=== PATIENT | male | born 1950 | race Caucasian/White ===

== ENCOUNTER 2024-08-06 15:09 | Observation (INO) | payer MEDICARE, OTHER, SELFPAY ==
--- NOTE | ~2024-08-06 | CT_ITS ---
CT abdomen pelvis w con Ordering provider: Whitney Ortiz PA-C History: 74 years Male with . abd pain, vomiting . Comparison: None. Technique: CT abdomen and pelvis with IV and without oral contrast. Automated exposure control and it erative reconstruction technique were employed. The dose-length product was 661.82 mGy-cm. 100 mL Omn ipaque 350 was given IV. Findings: VISUALIZED LOWER CHEST: Dependent atelectatic changes. Trace of pericardial effusion. Small lymph nodes are seen around the lower thoracic aorta. UPPER ABDOMINAL ORGANS: Liver: Normal. Gallbladder: Distended gallbladder with cholelithiasis. Spleen: Normal. Stomach/duodenum: Small sliding hiatus hernia. Pancreas: Normal. Adrenals: Normal. Kidneys: Stone in the left kidney upper pole measuring 5 mm. Tiny cyst in the left kidney upper pole. Tiny cyst in the right kidney lower pole PELVIC ORGANS: The bladder is normal. BOWEL AND MESENTERY: Colon: Slight thickening of the proximal sigmoid colon which may indicate colitis versus diverticulit is with possible minimal fat stranding. Clinical correlation for tenderness in the area advised.. Nor mal appendix. Dense material is seen in the appendix. No thickening Small Bowel: Normal. No obstruction. Peritoneum/mesentery: No free air or free fluid. No mesenteric lymphadenopathy. Panniculitis seen in the mid abdomen. Enlarged lymph nodes with the largest measures 1.2 cm. RETROPERITONEUM: Normal aorta. No retroperitoneal lymphadenopathy. MUSCULOSKELETAL: Superficial soft tissues: Left fat-containing inguinal hernia. The superficial soft tissues are hermelindo l. Bones: Age appropriate degenerative changes of the spine. IMPRESSION: 1. Panniculitis of the mid abdomen mesentery with slightly enlarged lymph nodes. 2. Possible colitis and less likely diverticulitis in the proximal sigmoid colon with thickening of the wall follow-up advised. 3. Cholelithiasis with distended gallbladder. No evidence of cholecystitis seen. 4. Stone in the left kidney upper pole Reviewed, dictated and finalized at location A. IMPRESSION: 1. Panniculitis of the mid abdomen mesentery with slightly enlarged lymph node s. 2. Possible colitis and less likely diverticulitis in the proximal sigmoid col on with thickening of the wall follow-up advised. 3. Cholelithiasis with distended gallbladder. No evidence of cholecystitis see n. 4. Stone in the left kidney upper pole
[2024-08-06 15:12] VITALS: BP 153/76; PULSE 85; RESP 20; TEMP 36.3; O2SAT 99
[2024-08-06 15:52] VITALS: BP 146/83; PULSE 88; RESP 17; O2SAT 100
--- NOTE | 2024-08-06 18:22 | ED.ABDPAIN ---
HPI - Abdominal Pain General Chief Complaint: Abdominal Pain Stated Complaint: abd pain Time Seen by Provider: 08/06/24 17:12 Source: patient Mode of arrival: ambulatory Limitations: no limitations History of Present Illness HPI narrative: This is a 74-year-old male that presents to the emergency department for abdominal pain. Ongoing since this morning. Reports associated nausea vomiting. Also reports chills. Denies fevers, diarrhea, dysuria, hematuria. Related Data Home Medications Medication Instructions Recorded Confirmed amlodipine 10 mg tablet 10 mg PO DAILY 08/07/24 08/07/24 cholecalciferol (vitamin D3) 25 25 mcg PO DAILY 08/07/24 08/07/24 mcg (1,000 unit) capsule (Vitamin D3) mecobalamin (vitamin B12) 1,000 1,000 mcg PO DAILY 08/07/24 08/07/24 mcg chewable tablet omega-3 fatty acids 1 cap PO DAILY 08/07/24 08/07/24 sertraline 200 mg capsule 200 mg PO DAILY 08/07/24 08/07/24 Allergies Allergy/AdvReac Type Severity Reaction Status Date / Time No Known Allergies Allergy Verified 08/06/24 21:44 Review of Systems Review of Systems: CONSTITUTIONAL: Reports chills. Denies fever GASTROINTESTINAL: Reports abdominal pain, nausea, vomiting. Denies diarrhea. GENITOURINARY: Denies dysuria or hematuria. All systems reviewed & are unremarkable except as noted in HPI and below PMFSH Past Medical History Medical History (Updated 08/07/24 @ 02:26 by Whitney Ortiz PA-C) History of depression Family History Family History (Updated 08/07/24 @ 02:05 by Florence Toussaint RN) Sibling Colon cancer Social History Social History (Updated 08/06/24 @ 18:25 by Whitney Ortiz PA-C) Smoking status: Former smoker Do You Feel Safe in your Home?: Yes Lack of Transportation: No Lack of Food: Never True Current Housing: I Have Housing Concerned About Future Housing: No Difficulty Paying Gas/Electric Bills: YES Difficulty Paying for Meds: No Currently Unemployed: No Education: High School Diploma/GED Difficulty w/ Childcare or Family Care: No Spiritual care concerns: No Exam Narrative: GENERAL: Well-appearing, well-nourished, and in no acute distress. HEAD: Normocephalic, atraumatic. EYES: EOMI. ENT: Nares clear, no rhinorrhea or epistaxis. Mucous membranes moist. CHEST: Clear to auscultation. No respiratory distress. No wheezes rales or rhonchi HEART: Regular rate and rhythm. No murmur heard. Normal peripheral pulses. ABDOMEN: Soft, nondistended, normal active bowel sounds. Tender to palpation throughout the abdomen, without guarding EXTREMITIES: Normal range of motion. No edema. SKIN: Warm, dry, no rash. NEURO: No focal deficits. Alert and oriented x3. PSYCH: Normal mood and affect Course Course Emergency Course: Patient updated on his workup and recommendation for admission Consultations Consultation #1: The MD does not have any beds at this time Date: 08/07/24 Consultation #2: Spoke with hospitalist about patient and workup who accepts admission Date: 08/07/24 Vital Signs Vital signs: Vital Signs Temperature 97.4 F L 08/06/24 15:12 Pulse Rate 85 08/06/24 15:12 Respiratory Rate 20 08/06/24 15:12 Blood Pressure 153/76 H 08/06/24 15:12 Pulse Oximetry 99 08/06/24 15:12 Oxygen Delivery Room Air 08/06/24 15:12 Temperature 98.8 F 08/06/24 21:20 Pulse Rate 74 08/07/24 01:18 Respiratory Rate 18 08/07/24 01:18 Blood Pressure 137/75 08/07/24 01:18 Pulse Oximetry 95 08/07/24 01:18 Oxygen Delivery Room Air 08/06/24 15:12 MDM - Abdominal Pain MDM Narrative Medical decision making narrative: Patient presents to the emergency department for abdominal pain, nausea vomiting. He is afebrile and nontoxic appearing. His vitals are stable. CBC with leukocytosis to 18.4. Metabolic panel with some evidence of dehydration. Patient hydrated with IV fluids in the ED. urine without evidence of infection. CT abdomen pelvis shows likely diverticulitis. Cholelithiasis with distended gallbladder. No evidence of cholecystitis. Patient was updated on his workup and recommendation for admission. Spoke with hospitalist about patient and workup who accepts admission. Patient started on IV antibiotics. Blood cultures drawn Differential Diagnosis Differential diagnosis: Likely diverticulitis, gastroenteritis and other (Cholecystitis) Lab Data Attestation: I reviewed the patient's lab results. 10/28/24 19:09 08/06/24 19:09 Labs: Lab Results 08/06/24 08/06/24 Range/Units 18:54 19:09 WBC 18.4 H (4.5-10.0) K/mm3 RBC 5.72 (4.6-6.20) M/mm3 Hgb 15.9 (14.0-18.0) g/dL Hct 47.3 (42.0-52.0) % MCV 82.7 (80-100) fl MCH 27.8 (26-34) pg MCHC 33.6 (32-36) g/dl RDW 14.6 H (11.5-14.5) % Plt Count 289 (150-375) k/mm3 MPV 8.9 (7.4-10.4) fl Immature Gran % (Auto) 0.4 (0-0.5) % Neut % (Auto) 84.8 H (45.5-73.1) % Lymph % (Auto) 10.0 L (18.3-44.2) % Brewster % (Auto) 4.4 (2.6-8.5) % Eos % (Auto) 0.0 (0-4.4) % Baso % (Auto) 0.4 (0.2-1.2) % Lymph # (Auto) 1.84 (0.9-3.2) K/mm3 Brewster # (Auto) 0.8 H (0.1-0.6) K/mm3 Eos # (Auto) 0.0 (0-0.3) K/mm3 Baso # (Auto) 0.1 (0.0-0.1) K/mm3 Abs Immat Gran (auto) 0.07 H (0.00-0.031) K/mm3 Absolute Neuts (auto) 15.6 H (1.3-6.7) K/mm3 Absolute Nucleated RBC 0.000 (0.0-0.012) K/mm3 Nucleated RBC % 0.0 (0.0-0.2) % Sodium 141 (137-145) mmol/L Potassium 3.6 (3.4-5.0) mmol/L Chloride 105 (98-107) mmol/L Carbon Dioxide 19 L (22-30) mmol/L Anion Gap 17 H (4-12) mmol/L BUN 17 (9-20) mg/dL Creatinine 1.10 (0.7-1.3) mg/dL Estim Creat Clear Calc 50 ml/min Estimated GFR > 60 (59 - ) Glucose 165 H (65-110) mg/dL Calcium 10.2 (8.4-10.2) mg/dL Total Bilirubin 1.0 (0.2-1.3) mg/dL AST 36 (17-59) U/L ALT 37 (6-50) U/L Alkaline Phosphatase 118 (38-126) U/L Total Protein 9.0 H (6.3-8.2) g/dL Albumin 4.9 (3.5-5.1) g/dL Lipase 85 (23-300) U/L Urine Color Yellow (Yellow) Urine Appearance Cloudy H (Clear) Urine pH 8.5 (5.0-9.0) Ur Specific [place] 1.017 (1.001-1.035) Urine Protein Trace (Negative) mg/dL Urine Glucose (UA) Negative (Negative) mg/dL Urine Ketones 1+ H (Negative) mg/dL Ur Blood (Man) Negative (Negative) Urine Nitrate Negative (Negative) Urine Bilirubin Negative (Negative) Urine Urobilinogen 0.2 (<2.0) mg/dL Leukocyte Esterase Rfl Negative (Negative) NIKKI/UL Urine RBC 0-2 (0-2) /hpf Urine WBC 0-5 (0-3) /hpf Ur Squamous Epith Cells None seen (Few) /hpf Urine Bacteria None seen /hpf Urine Casts 0-2 Imaging Data Radiologist's impression: ITS Impressions Abdomen/Pelvis CT 08/06/24 23:25 IMPRESSION: 1. Panniculitis of the mid abdomen mesentery with slightly enlarged lymph nodes. 2. Possible colitis and less likely diverticulitis in the proximal sigmoid colon with thickening of the wall follow-up advised. 3. Cholelithiasis with distended gallbladder. No evidence of cholecystitis seen. 4. Stone in the left kidney upper pole Critical Care Time Critical Care Time Critical Care Time: No Discharge Plan Discharge Clinical Impression: Diverticulitis, Dehydration Patient Disposition: Still a Patient Condition: Stable
[2024-08-06 18:50] VITALS: BP 144/82; PULSE 89; RESP 20; TEMP 36.8; O2SAT 97
[2024-08-06 19:06] LABS: Add Urine Microscopic? YES; Appearance Urine Cloudy (Clear); Bacteria Urine None Seen /hpf; Bilirubin Urine Negative (Negative); Blood Urine Negative (Negative); Color Urine Yellow (Yellow); Glucose Urine UA Negative (Negative); Ketones Urine 1+ mg/dL (Negative); Leukocyte Esterase Ur Negative LEU/UL (Negative); Nitrate Urine Negative (Negative); Non Pathogenic Casts 0-2; Protein Urine Trace mg/dL (Negative); RBC Urine 0-2 /hpf (0-2); Specific Grav Ur 1.017 (1.001-1.035); Squamous Epithelial Cell Urine None Seen /hpf (Few); Urobilinogen Urine 0.2 mg/dL (<2.0); WBC Urine 0-5 /hpf (0-3); pH Urine 8.5 (5.0-9.0)
[2024-08-06 19:13] VITALS: BP 155/87; PULSE 78; RESP 20; TEMP 36.8; O2SAT 97
[2024-08-06 19:21] LABS: Basophils Absolute Auto 0.1 K/mm3 (0.0-0.1); Basophils Percent Auto 0.4 % (0.2-1.2); Hematocrit 47.3 % (42.0-52.0); Hemoglobin 15.9 g/dL (14.0-18.0); Immature Granulocyte Absolute 0.07 K/mm3 (0.00-0.031); Immature Granulocyte Percent A 0.4 % (0-0.5); Lymphocytes Absolute Auto 1.84 K/mm3 (0.9-3.2); Mean Corpuscular HGB Conc 33.6 g/dl (32-36); Mean Corpuscular Hemoglobin 27.8 pg (26-34); Mean Corpuscular Volume 82.7 fl (80-100); Mean Platelet Volume 8.9 fl (7.4-10.4); Monocytes Absolute Auto 0.8 K/mm3 (0.1-0.6); Monocytes Percent Auto 4.4 % (2.6-8.5); Neutrophils Absolute Auto 15.6 K/mm3 (1.3-6.7); Neutrophils Percent Auto 84.8 % (45.5-73.1); Platelet Count Result 289 k/mm3 (150-375); Red Blood Count 5.72 M/mm3 (4.6-6.20); Red Cell Distribution Width 14.6 % (11.5-14.5); White Blood Count 18.4 K/mm3 (4.5-10.0)
[2024-08-06] MEDS: SODIUM CHLORIDE 0.9% IV 1,000 ML 999 ML IV CONT ×2 (19:34→23:52)
[2024-08-06] MEDS: PANTOPRAZOLE SODIUM IV 40 MG VIAL IV PUSH (19:38)
[2024-08-06] MEDS: diphenhydrAMINE HCl INJ 50 MG/ML VIAL 25 MG IV PUSH (19:39)
[2024-08-06] MEDS: METOCLOPRAMIDE HCL INJ 10 MG/2 ML VIAL IV PUSH (19:40)
[2024-08-06] MEDS: MORPHINE SULFATE (*CRX) 4 MG/ML INJ IV PUSH (19:42)
[2024-08-06 19:58] LABS: Alanine Aminotransferase 37 U/L (6-50); Albumin Level 4.9 g/dL (3.5-5.1); Alkaline Phosphatase 118 U/L (38-126); Anion Gap 17 mmol/L (4-12); Aspartate Amino Transferase 36 U/L (17-59); Blood Urea Nitrogen 17 mg/dL (9-20); Calcium 10.2 mg/dL (8.4-10.2); Carbon Dioxide 19 mmol/L (22-30); Chloride 105 mmol/L (98-107); Estimated CRCL calculation 50 ml/min; Estimated Glomerular Filt Rate > 60; Glucose 165 mg/dL (65-110); Lipase 85 U/L (23-300); Potassium 3.6 mmol/L (3.4-5.0); Sodium 141 mmol/L (137-145)
[2024-08-06 21:20] VITALS: BP 139/74; PULSE 87; RESP 16; TEMP 37.1; O2SAT 97
[2024-08-06 23:27] VITALS: BP 135/77; PULSE 86; RESP 18; O2SAT 93
[2024-08-07] VITALS (8 sets, daily range): BP systolic 107–137; BP diastolic 58–75; PULSE 73–87; RESP 12–20; TEMP 36.6–37; O2SAT 93–96; BMI 27.6
[2024-08-07] MEDS: metroNIDAZOLE 500 MG/ISO 100ML 500 MG/100 ML BAG 100 MG IVPB ×3 (00:44→15:30)
--- NOTE | 2024-08-07 03:11 | ADMGEN ---
This patient, Onel Christianson, was admitted to [facility] Surg Room 306-01. Patient/family oriented to hospital policies and general routines including ID bracelet, bed and alarms, visiting hours, pain management, procedures, bathroom and other care routines, personal items, smoking policy, room service/diet, and visiting hours. Information on how to activate the Rapid Response Team has been discussed. Patient/Family are encouraged to report perceived risks to care and to ask questions if they do not understand what they are told or what they should do.
[2024-08-07] MEDS: SODIUM CHLORIDE 0.9% IV 1,000 ML 125 ML IV CONT ×3 (03:27→19:29)
[2024-08-07] MEDS: SERTRALINE HCL 50 MG TABLET 200 MG PO (09:25)
[2024-08-07] MEDS: CYANOCOBALAMIN 1,000 MCG TABLET 1000 MCG PO (09:25)
[2024-08-07] MEDS: CHOLECALCIFEROL 1,000 UNITS TABLET 1000 UNITS PO (09:25)
[2024-08-07] MEDS: OMEGA 3 POLYUNSAT FATTY ACIDS 1 GM CAP PO (09:25)
--- NOTE | 2024-08-07 09:31 | P.HP_ITS ---
H&P: HPI History of Present Illness Date/Time: 08/07/24 09:31 Chief Complaint: Patient is a 74 year old male that presented to the ER department with abdominal pain that started yesterday morning. Patient reports nausea and vomiting 8 times. Denies nausea at present, fevers, diarrhea, dysuria, or hematuria. [facility] Patient started on IV Ceftriaxone and Vancomycin in the ER with WBC improving from 18.4>16.0. Normal LFTs, normal BMP, normal lipase. Blood cultures pending. GI consulted. Abdominal pelvis CT showed: IMPRESSION: 1. Panniculitis of the mid abdomen mesentery with slightly enlarged lymph nodes. 2. Possible colitis and less likely diverticulitis in the proximal sigmoid colon with thickening of the wall follow-up advised. 3. Cholelithiasis with distended gallbladder. No evidence of cholecystitis seen. 4. Stone in the left kidney upper pole. Review of Systems Review of Systems: All systems reviewed & are unremarkable except as noted in HPI and below PMFSH Past Medical History Medical History (Updated 08/07/24 @ 10:37 by Sherrie Johnson APRN) History of depression Family History Family History (Updated 08/07/24 @ 02:05 by Florence Toussaint RN) Sibling Colon cancer Social History Social History (Updated 08/06/24 @ 18:25 by Whitney Ortiz PA-C) Smoking status: Former smoker Do You Feel Safe in your Home?: Yes Lack of Transportation: No Lack of Food: Never True Current Housing: I Have Housing Concerned About Future Housing: No Difficulty Paying Gas/Electric Bills: YES Difficulty Paying for Meds: No Currently Unemployed: No Education: High School Diploma/GED Difficulty w/ Childcare or Family Care: No Spiritual care concerns: No Meds Home Medications and Allergies Home Medications Medication Instructions Recorded Confirmed Type amlodipine 10 mg tablet 10 mg PO DAILY 08/07/24 08/07/24 History cholecalciferol (vitamin D3) 25 25 mcg PO DAILY 08/07/24 08/07/24 History mcg (1,000 unit) capsule (Vitamin D3) mecobalamin (vitamin B12) 1,000 1,000 mcg PO DAILY 08/07/24 08/07/24 History mcg chewable tablet omega-3 fatty acids 1 cap PO DAILY 08/07/24 08/07/24 History sertraline 200 mg capsule 200 mg PO DAILY 08/07/24 08/07/24 History Allergies Allergy/AdvReac Type Severity Reaction Status Date / Time No Known Allergies Allergy Verified 08/06/24 21:44 Vital Signs Vital Signs - 24 hr 08/06/24 15:12 08/06/24 15:52 08/06/24 18:50 Temperature 97.4 F L 98.2 F Pulse Rate 85 88 89 Respiratory Rate 20 17 20 Blood Pressure 153/76 H 146/83 H 144/82 H Pulse Oximetry 99 100 97 Oxygen Delivery Room Air 08/06/24 19:13 08/06/24 21:20 08/06/24 23:27 Temperature 98.2 F 98.8 F Pulse Rate 78 87 86 Respiratory Rate 20 16 18 Blood Pressure 155/87 H 139/74 135/77 Pulse Oximetry 97 97 93 Oxygen Delivery 08/07/24 00:44 08/07/24 01:18 08/07/24 02:37 Temperature 98.6 F Pulse Rate 78 74 75 Respiratory Rate 18 18 12 Blood Pressure 130/69 137/75 117/66 Pulse Oximetry 94 95 96 Oxygen Delivery 08/07/24 02:30 08/07/24 05:32 08/07/24 08:00 Temperature 98.0 F Pulse Rate 73 Respiratory Rate 12 Blood Pressure 122/58 L Pulse Oximetry 93 93 Oxygen Delivery Room Air Room Air 08/07/24 09:28 Temperature Pulse Rate Respiratory Rate Blood Pressure 113/64 Pulse Oximetry Oxygen Delivery Exam Const: General: no acute distress Eyes: Sclera: sclerae normal Resp: Effort & Inspection: normal respiratory effort Auscultation: clear to auscultation bilaterally Cardio: Rate: regular rate Rhythm: regular rhythm GI: GI Palp: Yes Soft to palpation and Yes Tenderness to palpation present (G I) (mid upper abdomen) Auscultation: normal bowel sounds Skin: General skin exam: no rashes or lesions noted Neuro: Speech: normal speech Extrem: General: normal to inspection and no pedal edema Psych: Mental Status: mental status grossly normal Affect: normal affect H&P: Results Labs Labs: Short CBC 08/06/24 Range/Units 19:09 WBC 18.4 H (4.5-10.0) K/mm3 Hgb 15.9 (14.0-18.0) g/dL Hct 47.3 (42.0-52.0) % Plt Count 289 (150-375) k/mm3 BMP 08/06/24 19:09 Sodium 141 Potassium 3.6 Chloride 105 Carbon Dioxide 19 L BUN 17 Creatinine 1.10 Glucose 165 H Calcium 10.2 Liver Function 08/06/24 Range/Units 19:09 Total Bilirubin 1.0 (0.2-1.3) mg/dL AST 36 (17-59) U/L ALT 37 (6-50) U/L Alkaline Phosphatase 118 (38-126) U/L Albumin 4.9 (3.5-5.1) g/dL Urine 08/06/24 Range/Units 18:54 Urine Color Yellow (Yellow) Urine Appearance Cloudy H (Clear) Urine pH 8.5 (5.0-9.0) Ur Specific [place] 1.017 (1.001-1.035) Urine Protein Trace (Negative) mg/dL Urine Glucose (UA) Negative (Negative) mg/dL Assessment and Plan Assessment and plan (1) Abnormal digestive system diagnostic imaging: Code(s): R93.3 - Abnormal findings on diagnostic imaging of other parts of digestive tract Status: Acute Assessment and Plan: * Abdominal pelvis CT showed: IMPRESSION: 1. Panniculitis of the mid abdomen mesentery with slightly enlarged lymph nodes. 2. Possible colitis and less likely diverticulitis in the proximal sigmoid colon with thickening of the wall follow-up advised. 3. Cholelithiasis with distended gallbladder. No evidence of cholecystitis seen. 4. Stone in the left kidney upper pole. * Monitor symptoms. GI consulted. (2) Panniculitis: Code(s): M79.3 - Panniculitis, unspecified Status: Acute Assessment and Plan: Abdominal pelvis CT showed: IMPRESSION: 1. Panniculitis of the mid abdomen mesentery with slightly enlarged lymph no desiree. 2. Possible colitis and less likely diverticulitis in the proximal sigmoid colon with thickening of the wall follow-up advised. 3. Cholelithiasis with distended gallbladder. No evidence of cholecystitis seen. 4. Stone in the left kidney upper pole. * Monitor symptoms. GI consulted. (3) Diverticulitis: Code(s): K57.92 - Diverticulitis of intestine, part unspecified, without perforation or abscess without bleeding Status: Acute Assessment and Plan: Abdominal pelvis CT showed: IMPRESSION: 1. Panniculitis of the mid abdomen mesentery with slightly enlarged lymph nodes. 2. Possible colitis and less likely diverticulitis in the proximal sigmoid colon with thickening of the wall follow-up advised. 3. Cholelithiasis with distended gallbladder. No evidence of cholecystitis seen. 4. Stone in the left kidney upper pole. * Monitor symptoms. GI consulted. * Continue Ceftriaxone 1 gm daily and Metronidazole 500 mg IVPB q8 (4) Abdominal pain: Qualifiers: Abdominal location: periumbilical Qualified Code(s): R10.33 - Periumbilical pain Code(s): R10.9 - Unspecified abdominal pain Status: Acute Assessment and Plan: * improving. No nausea or vomiting today. * Continue Ceftriaxone 1 gm daily and Metronidazole 500 mg IVPB q8. * Acetaminophen 650 mg PO q 6 PRN. (5) Nausea and vomiting: Qualifiers: Vomiting type: bilious vomiting Qualified Code(s): R11.14 - Bilious vomiting Code(s): R11.2 - Nausea with vomiting, unspecified Status: Acute Assessment and Plan: * Improved. No nausea or vomiting since arrived on floor today. * Continue Ondansetron 4 mg ivp q 4 PRN. * Continue Clear liquids, patient is tolerating. (6) Cholelithiasis: Qualifiers: Biliary obstruction: without biliary obstruction Cholecystitis presence: without cholecystitis Cholelithiasis location: gallbladder Qualified Code(s): K80.20 - Calculus of gallbladder without cholecystitis without obstruction Code(s): K80.20 - Calculus of gallbladder without cholecystitis without obstruction Status: Acute Assessment and Plan: * Monitor symptoms * GI following. (7) Family history of colon cancer: Code(s): Z80.0 - Family history of malignant neoplasm of digestive organs Status: Acute (8) Personal history of colon polyps, unspecified: Code(s): Z86.0100 - Personal history of colon polyps, unspecified Status: Acute Quality VTE Prophylaxis VTE prophylaxis: mechanical ordered Hospitalist MIPS Advance Care Plan I have confirmed that the patient's Advanced Care Plan is present, code status is documented, or surrogate decision maker is listed in patient medical record.: Yes Medication Reconciliation I have utilized all available resources to obtain, update and review the patients current medications (includes all prescriptions, OTC, herbals, cannabis, and nutritional supplements).: Yes
[2024-08-07 09:50] LABS: Basophils Percent Auto 0.2 % (0.2-1.2); Eosinophils Percent Auto 0.3 % (0-4.4); Hematocrit 40.8 % (42.0-52.0); Immature Granulocyte Absolute 0.05 K/mm3 (0.00-0.031); Immature Granulocyte Percent A 0.3 % (0-0.5); Lymphocytes Absolute Auto 2.48 K/mm3 (0.9-3.2); Lymphocytes Percent Auto 15.5 % (18.3-44.2); Mean Corpuscular HGB Conc 31.9 g/dl (32-36); Mean Corpuscular Hemoglobin 27.5 pg (26-34); Mean Corpuscular Volume 86.3 fl (80-100); Monocytes Absolute Auto 1.2 K/mm3 (0.1-0.6); Monocytes Percent Auto 7.7 % (2.6-8.5); Neutrophils Absolute Auto 12.1 K/mm3 (1.3-6.7); Platelet Count Result 216 k/mm3 (150-375); Red Blood Count 4.73 M/mm3 (4.6-6.20); Red Cell Distribution Width 15.3 % (11.5-14.5)
--- NOTE | 2024-08-07 10:23 | WPDGICN ---
Assessment and Plan Assessment and plan (1) Abnormal digestive system diagnostic imaging: Code(s): R93.3 - Abnormal findings on diagnostic imaging of other parts of digestive tract <Sherrie Johnson DATASTAGE DEVELOPER - Last Filed: 08/07/24 10:42> Status: Acute <Sherrie Johnson APRN - Last Filed: 08/07/24 10:42> (2) Panniculitis: Code(s): M79.3 - Panniculitis, unspecified <Sherrie Johnson DATASTAGE DEVELOPER - Last Filed: 08/07/24 10:42> Status: Acute <Sherrie Johnson DATASTAGE DEVELOPER - Last Filed: 08/07/24 10:42> (3) Diverticulitis: Code(s): K57.92 - Diverticulitis of intestine, part unspecified, without perforation or abscess without bleeding <Sherrie Johnson DATASTAGE DEVELOPER - Last Filed: 08/07/24 10:42> Status: Acute <Sherrie Johnson DATASTAGE DEVELOPER - Last Filed: 08/07/24 10:42> (4) Nausea and vomiting: Qualifiers: Vomiting type: bilious vomiting Qualified Code(s): R11.14 - Bilious vomiting <Sherrie Johnson DATASTAGE DEVELOPER - Last Filed: 08/07/24 10:42> Code(s): R11.2 - Nausea with vomiting, unspecified <Sherrie Johnson DATASTAGE DEVELOPER - Last Filed: 08/07/24 10:42> Status: Acute <Shrerie Johnson DATASTAGE DEVELOPER - Last Filed: 08/07/24 10:42> (5) Abdominal pain: Qualifiers: Abdominal location: periumbilical Qualified Code(s): R10.33 - Periumbilical pain <Sherrie Khanchasidy DATASTAGE DEVELOPER - Last Filed: 08/07/24 10:42> Code(s): R10.9 - Unspecified abdominal pain <Sherrie KhanLILI umañaN - Last Filed: 08/07/24 10:42> Status: Acute <Sherrie Khanchasidy DATASTAGE DEVELOPER - Last Filed: 08/07/24 10:42> (6) Cholelithiasis: Qualifiers: Biliary obstruction: without biliary obstruction Cholecystitis presence: without cholecystitis Cholelithiasis location: gallbladder Qualified Code(s): K80.20 - Calculus of gallbladder without cholecystitis without obstruction <Sherrie Johnson APRN - Last Filed: 08/07/24 10:42> Code(s): K80.20 - Calculus of gallbladder without cholecystitis without obstruction <Sherrie Johnson APRN - Last Filed: 08/07/24 10:42> Status: Acute <Sherrie Johnson APRN - Last Filed: 08/07/24 10:42> (7) Family history of colon cancer: Code(s): Z80.0 - Family history of malignant neoplasm of digestive organs <Sherrie Johnson, DATASTAGE DEVELOPER - Last Filed: 08/07/24 10:42> Status: Acute <Sherrie Johnson APRN - Last Filed: 08/07/24 10:42> (8) Personal history of colon polyps, unspecified: Code(s): Z86.0100 - Personal history of colon polyps, unspecified <Sherrie Johnson APRN - Last Filed: 08/07/24 10:42> Status: Acute <Sherrie Johnson APRN - Last Filed: 08/07/24 10:42> Assessment and Plan: 1. Umbilical abdominal pain/ nausea/vomiting/ abnormal imaging digestive-colitis and panniculitis/ leukocytosis/ personal history of colon polyps/family history of colon cancer: Last colonoscopy per patient was performed at the [place] 1 year ago which time he had a polyp removed and was noted to have diverticulosis, reports not available during today's visit. Patient's sister diagnosed with colon cancer with liver Mets at age 41. Prior to admission the patient started having an acute onset of umbilical abdominal pain around 9:00 a.m. yesterday that started as a dull pain and became very severe prompting his trip to the emergency room. This pain has all but resolved except for very mild discomfort with palpation in his upper abdomen. He had nausea and vomiting while in the emergency room but denies any episodes since. Admits to reflux that had been occurring a few days prior to admission that resolved with Tums, denies any reflux at this time. CT findings most consistent with possible colitis, less likely diverticulitis in proximal sigmoid colon. labs yesterday showed WBCs 18, HGB 16, normal LFTs, normal BMP, normal lipase. CT findings likely secondary to acute infectious / inflammatory process patient on ceftriaxone and Flagyl, continue for 48 hours and then discharge on PO antibiotics Blood cultures pending Continue supportive care with pain management and antiemetics 2. Cholelithiasis: Incidental finding on CT, gallbladder distended but no evidence of cholecystitis. No signs of biliary obstruction or dilation. LFTs and lipase normal. Monitor for signs/symptoms of biliary colic or cholecystitis Consider surgical evaluation for cholecystectomy as outpatient if recurrent symptoms Thank you very much for allowing me to share in the care of this very nice patient. This report may have been done utilizing a voice recognition system. Attempts have been made to correct errors. However, there may be uncorrected grammatical, spelling, and recognition errors present. <Sherrie Johnson APRN - Last Filed: 08/07/24 10:42> GI Consult Note Consult date/time: 08/07/24 10:23 <Sherrie Johnson APRN - Last Filed: 08/07/24 10:42> 08/07/24 10:23 I have reviewed our nurse practitioner's note, examined the patient and pertinent laboratory data. We have discussed the plan extensively and agreed with was stated in the note. The patient still has mild tenderness in the left lower quadrant, and the CT scan shows changes compatible with acute diverticulitis. He does have diverticula on previous colonoscopies, done for his significant family history of colorectal cancer. He is currently receiving intravenous antibiotics which have improved his pain and discomfort significantly. He has received at least 48 hours of these antibiotics, and if his white count improves to normal, he can be discharged with 12 more days of oral antibiotics, which can be amoxicillin/clavulanic acid 1 g b.i.d. there is no need to perform a follow-up colonoscopy since he has a recent one. Will order CBC for tomorrow. <Terrence Arguello MD - Last Filed: 08/07/24 15:52> Reason for consult: Diverticulitis and abdominal pain <Sherrie Johnson APRN - Last Filed: 08/07/24 10:42> HPI: This is a pleasant male with a past medical surgical history of right inguinal hernia repair 30 years ago. He presented to the ER room 08/06/2024 with complaints of abdominal pain, nausea and vomiting. GI consulted for diverticulitis and abdominal pain. The patient reports that his abdominal pain started on 08/05/2024 around 9:00 AM. He describes it as a dull pain at first but then became pretty painful , located in the middle of his abdomen around his belly button. He started having nausea and vomiting a few hours later while in the ER but denies any further nausea or vomiting. He thought it may have been something he ate the night before or possibly the flu. He denies any current abdominal pain, just some discomfort. He denies any bloating or abdominal distension. He denies any dysphagia or odynophagia. He reports having some heartburn a couple days prior to this episode that occurred during the day and night. He took Tums which helped somewhat. His appetite has been okay. He reports losing about 10 pounds as 3-4 weeks ago when he thought he may have had COVID, but his weight has been stable since then. He has daily bowel movements, with occasional bouts of diarrhea a few times per week which typically resolves after 3-4 bowel movements. No constipation. He denies any hematochezia or melena. He takes ibuprofen and Tylenol a few times per month. Gallbladder in situ. He had a right inguinal hernia repair about 30 years ago. His last colonoscopy was about a year ago at the [place] with polyp and diverticulosis and advised to repeat in 5 years. His sister was diagnosed with colon cancer at age 41 and from liver metastases. Another sister has some type of colitis, possibly ulcerative colitis. He denies any other family history of GI cancers. He rarely drinks alcohol socially and denies any smoking or marijuana use. ENDOSCOPY HISTORY: EGD: Patient has never had an EGD COLONOSCOPY: Last colonoscopy about a year ago at [place] (patient reports polyp removed and diverticlosis noted) Repeat recommended in 5 years LABS AND STOOL STUDIES: Labs 08/06/2024: Sodium 141, Potassium 3.6, BUN 17, Creatinine 1.10, GFR > 60 WBC 18, Hgb 16, Hct 47, MCV 83, Platelets 289 Total Bilirubin 1.0, AST 36, ALT 37, Alkaline Phosphatase 118, Albumin 4.9 Lipase 85, Calcium 2.0 IMAGING: CT abd/pelvis w/contrast 08/06/2024 IMPRESSION ? Panniculitis of the mid abdomen mesentery with slightly enlarged lymph nodes. ? Possible colitis and less likely diverticulitis in the proximal sigmoid colon with thickening of the wall follow-up advised. ? Cholelithiasis with distended gallbladder. No evidence of cholecystitis seen. ? Stone in the left kidney upper pole <Sherrie Johnson APRN - Last Filed: 08/07/24 10:42> Review of Systems Constitutional: Constitutional: Reports as per HPI <Sherrie Johnson APRN - Last Filed: 08/07/24 10:42> ENT: Reports as per HPI <Sherrie Johnson APRN - Last Filed: 08/07/24 10:42> Cardiovascular: Cardiovascular: Reports as per HPI, Denies chest pain, Denies leg edema, Denies lightheadedness and Denies dyspnea <Sherrie Johsnon APRN - Last Filed: 08/07/24 10:42> Respiratory: Respiratory: Denies cough and Denies dyspnea <Sherrie Johnson APRN - Last Filed: 08/07/24 10:42> Gastrointestinal: Gastrointestinal: Reports as per HPI and Reports abdominal pain (mild dull umbilical pain, was severe prior to admission) <Sherrie Johnson APRN - Last Filed: 08/07/24 10:42> Musculoskeletal: Musculoskeletal: Reports as per HPI <Sherrie Johnson APRN - Last Filed: 08/07/24 10:42> Integumentary/Breasts: Skin/Breast: Reports as per HPI <Sherrie Johnson APRN - Last Filed: 08/07/24 10:42> Psychiatric: Psychiatric: Reports as per HPI <Sherrie Johnson APRN - Last Filed: 08/07/24 10:42> Endocrine: Endocrine: Reports no additional endocrine complaints <Sherrie Johnson APRN - Last Filed: 08/07/24 10:42> Hematologic/Lymphatic: Hematologic/Lymphatic: Reports no additional hematologic/lymphatic complaints <Sherrie Johnson APRN - Last Filed: 08/07/24 10:42> [facility] Past Medical History Medical History: Medical History (Updated 08/07/24 @ 10:37 by Sherrie Johnson APRN) History of depression <Sherrie Johnson APRN - Last Filed: 08/07/24 10:42> Family History Family History: Family History (Updated 08/07/24 @ 02:05 by Florence Toussaint RN) Sibling Colon cancer <Sherrie Johnson APRN - Last Filed: 08/07/24 10:42> Social History Social History: Social History (Updated 08/06/24 @ 18:25 by Whitney Ortiz PA-C) Smoking status: Former smoker Do You Feel Safe in your Home?: Yes Lack of Transportation: No Lack of Food: Never True Current Housing: I Have Housing Concerned About Future Housing: No Difficulty Paying Gas/Electric Bills: YES Difficulty Paying for Meds: No Currently Unemployed: No Education: High School Diploma/GED Difficulty w/ Childcare or Family Care: No Spiritual care concerns: No <Sherrie Johnson APRN - Last Filed: 08/07/24 10:42> Meds Home Medications and Allergies Home medications: Home Medications Medication Instructions Recorded Confirmed Type amlodipine 10 mg tablet 10 mg PO DAILY 08/07/24 08/07/24 History cholecalciferol (vitamin D3) 25 25 mcg PO DAILY 08/07/24 08/07/24 History mcg (1,000 unit) capsule (Vitamin D3) mecobalamin (vitamin B12) 1,000 1,000 mcg PO DAILY 08/07/24 08/07/24 History mcg chewable tablet omega-3 fatty acids 1 cap PO DAILY 08/07/24 08/07/24 History sertraline 200 mg capsule 200 mg PO DAILY 08/07/24 08/07/24 History <Sherrie Johnson APRN - Last Filed: 08/07/24 10:42> Allergies/Adverse reactions: Allergies Allergy/AdvReac Type Severity Reaction Status Date / Time No Known Allergies Allergy Verified 08/06/24 21:44 <Sherrie Johnson APRN - Last Filed: 08/07/24 10:42> Vital Signs Vital Signs - 24 hr 08/06/24 15:12 08/06/24 15:52 08/06/24 18:50 Temperature 97.4 F L 98.2 F Pulse Rate 85 88 89 Respiratory Rate 20 17 20 Blood Pressure 153/76 H 146/83 H 144/82 H Pulse Oximetry 99 100 97 Oxygen Delivery Room Air 08/06/24 19:13 08/06/24 21:20 08/06/24 23:27 Temperature 98.2 F 98.8 F Pulse Rate 78 87 86 Respiratory Rate 20 16 18 Blood Pressure 155/87 H 139/74 135/77 Pulse Oximetry 97 97 93 Oxygen Delivery 08/07/24 00:44 08/07/24 01:18 08/07/24 02:37 Temperature 98.6 F Pulse Rate 78 74 75 Respiratory Rate 18 18 12 Blood Pressure 130/69 137/75 117/66 Pulse Oximetry 94 95 96 Oxygen Delivery 08/07/24 02:30 08/07/24 05:32 08/07/24 08:00 Temperature 98.0 F Pulse Rate 73 Respiratory Rate 12 Blood Pressure 122/58 L Pulse Oximetry 93 93 Oxygen Delivery Room Air Room Air 08/07/24 09:28 Temperature Pulse Rate Respiratory Rate Blood Pressure 113/64 Pulse Oximetry Oxygen Delivery <Sherrie Johnson APRN - Last Filed: 08/07/24 10:42> Exam Const: General: cooperative, healthy appearing, comfortable, no acute distress and well developed <Sherrie Johnson APRN - Last Filed: 08/07/24 10:42> Orientation/consciousness: oriented to person, oriented to place, oriented to time and patient oriented x3 <Sherrie Johnson APRN - Last Filed: 08/07/24 10:42> HENMT: Head: normal to inspection, normocephalic and atraumatic <Sherrie Johnson APRN - Last Filed: 08/07/24 10:42> Mouth: Yes Normal oral and palatal mucosa present and Yes moist mucous membranes <Sherrie Johnson APRN - Last Filed: 08/07/24 10:42> Eyes: General: appearance normal, both eyes and all related structures <Sherrie Johnson APRN Last Filed: 08/07/24 10:42> Conjunctivae: conjunctivae normal <[facility] Last Filed: 08/07/24 10:42> Sclera: sclerae normal <Sherrie Johnson [facility] Last Filed: 08/07/24 10:42> Pupils: Equal, round and reactive pupils present <Sherrie Johnson [facility] Last Filed: 08/07/24 10:42> Neck: Neck: normal visual inspection <[facility]rie [facility]Former[facility] Last Filed: 08/07/24 10:42> Chest: Chest palpation & inspection: normal inspection of the chest <Sherrie Johnson [facility] Last Filed: 08/07/24 10:42> Resp: Effort & Inspection: normal respiratory effort and able to speak in complete sentences <Sherrie Johnson [facility] Last Filed: 08/07/24 10:42> Auscultation: clear to auscultation bilaterally <Sherrie Johnson [facility] Last Filed: 08/07/24 10:42> Cardio: Jugular venous distension: no JVD <Sherrie Johnson [facility]Former[facility] Last Filed: 08/07/24 10:42> Rate: regular rate <Sherrie Johnson APRFormerly [facility] Last Filed: 08/07/24 10:42> Rhythm: regular rhythm <Sherrie Johnson APRFormer[facility] Last Filed: 08/07/24 10:42> Heart sounds: S1 normal heart sound present and S2 normal heart sound present <Sherrie Johnson [facility] Last Filed: 08/07/24 10:42> GI: Inspection: normal to inspection <Sherrie Johnson [facility] Last Filed: 08/07/24 10:42> GI Palp: Yes Soft to palpation, No Firmness to palpation present (GI), Yes Tenderness to palpation present (GI) (mild upper abdominal tenderness with palpation ), No Guarding due to palpation present (GI) and Yes No hepatosplenomegaly present <Sherrie Johnson APRN - Last Filed: 08/07/24 10:42> Auscultation: normal bowel sounds <Sherrie Johnson APRN - Last Filed: 08/07/24 10:42> Rectal Exam: deferred <Sherrie Johnson APRN - Last Filed: 08/07/24 10:42> Skin: General skin exam: normal color and no rashes or lesions noted <Sherrie Johnson APRN - Last Filed: 08/07/24 10:42> Neuro: General: oriented to person, oriented to place, oriented to time and patient oriented x3 <Sherrie [facility] Last Filed: 08/07/24 10:42> Cranial nerves: Yes Equal, round and reactive pupils present <Sherrie Johnson APRN Last Filed: 08/07/24 10:42> Speech: normal speech <Sherrie Johnson APRN - Last Filed: 08/07/24 10:42> Extrem: General: normal to inspection and no clubbing, cyanosis or edema <Sherrie Johnson DATASTAGE DEVELOPER - Last Filed: 08/07/24 10:42> Psych: Appearance: grossly normal and well kempt <Sherrie Johnson APRN - Last Filed: 08/07/24 10:42> Affect: normal affect <[facility] Last Filed: 08/07/24 10:42> Results Labs CBC & Chem 7: 08/07/24 09:42 08/07/24 09:42 <Sherrie Johnson APRN - Last Filed: 08/07/24 10:42> Labs: Short CBC 08/06/24 08/07/24 Range/Units 19:09 09:42 WBC 18.4 H 16.0 H (4.5-10.0) K/mm3 Hgb 15.9 13.0 L (14.0-18.0) g/dL Hct 47.3 40.8 L (42.0-52.0) % Plt Count 289 216 (150-375) k/mm3 BMP 08/06/24 19:09 Sodium 141 Potassium 3.6 Chloride 105 Carbon Dioxide 19 L BUN 17 Creatinine 1.10 Glucose 165 H Calcium 10.2 Liver Function 08/06/24 Range/Units 19:09 Total Bilirubin 1.0 (0.2-1.3) mg/dL AST 36 (17-59) U/L ALT 37 (6-50) U/L Alkaline Phosphatase 118 (38-126) U/L Albumin 4.9 (3.5-5.1) g/dL Urine 08/06/24 Range/Units 18:54 Urine Color Yellow (Yellow) Urine Appearance Cloudy H (Clear) Urine pH 8.5 (5.0-9.0) Ur Specific [place] 1.017 (1.001-1.035) Urine Protein Trace (Negative) mg/dL Urine Glucose (UA) Negative (Negative) mg/dL <Sherrie Johnson, DATASTAGE DEVELOPER - Last Filed: 08/07/24 10:42>
[2024-08-07 10:26] LABS: Alanine Aminotransferase 22 U/L (6-50); Albumin Level 3.6 g/dL (3.5-5.1); Alkaline Phosphatase 71 U/L (38-126); Anion Gap 8 mmol/L (4-12); Aspartate Amino Transferase 24 U/L (17-59); Bilirubin,Total 0.6 mg/dL (0.2-1.3); Blood Urea Nitrogen 15 mg/dL (9-20); Calcium 8.6 mg/dL (8.4-10.2); Carbon Dioxide 24 mmol/L (22-30); Chloride 108 mmol/L (98-107); Estimated CRCL calculation 46 ml/min; Estimated Glomerular Filt Rate 59; Glucose 142 mg/dL (65-110); Magnesium 2.1 mg/dL (1.6-2.3); Potassium 3.6 mmol/L (3.4-5.0); Sodium 140 mmol/L (137-145)
[2024-08-08] MEDS: metroNIDAZOLE 500 MG/ISO 100ML 500 MG/100 ML BAG 100 MG IVPB ×2 (00:35→08:08)
[2024-08-08] MEDS: SODIUM CHLORIDE 0.9% IV 1,000 ML 125 ML IV CONT (05:45)
[2024-08-08 05:55] VITALS: BP 120/45; PULSE 62; RESP 12; TEMP 36.2; O2SAT 91
--- NOTE | 2024-08-08 07:01 | WPDGIPROGNO ---
Progress Note: A&P Assessment and Plan (1) Diverticulitis: Code(s): K57.92 - Diverticulitis of intestine, part unspecified, without perforation or abscess without bleeding Status: Acute Assessment and Plan: Patient with acute diverticulitis, good clinical course with antibiotics. CBC today pending, but trend is favorable compared with admission, absolute neutrophil count improved. if this trend continues he can be discharged home on 12 more days of antibiotics, suggest Amox/Clavulanic acid 1 g bid. Regular diet with fiber to avoid constipation and recurrence of diverticulitis. No need to restricat nuts, seeds, etc. Subjective Date/time seen: 08/08/24 07:01 Interval history: No abdominal pain, no fever, slept well through the night, tolerated oral intake. Exam Narrative: No abdominal tendereness Objective Data Vital Signs Vital Signs: Vital Signs - 24 hr 08/07/24 08:00 08/07/24 09:28 08/07/24 14:00 Temperature 97.9 F Pulse Rate 87 Respiratory Rate 20 Blood Pressure 113/64 107/59 L Pulse Oximetry 93 93 Oxygen Delivery Room Air 08/07/24 15:10 08/07/24 21:13 08/08/24 05:55 Temperature 97.8 F 97.1 F L Pulse Rate 77 62 Respiratory Rate 16 12 Blood Pressure 135/63 120/45 L Pulse Oximetry 93 91 Oxygen Delivery Room Air Intake/Output Intake/Output: Intake & Output 08/05/24 08/06/24 08/07/24 08/08/24 23:59 23:59 23:59 23:59 Intake Total 1000 4622.1 1250 Balance 1000 4622.1 1250 Meds/Results Medications: Active Medications Generic Name Dose Route Start Last Admin Trade Name Freq PRN Reason Stop Dose Admin Acetaminophen 650 mg 08/07/24 14:46 Acetaminophen 325 Mg Tablet PO Q6H PRN Mild Pain (1-3) or Fever Amlodipine Besylate 10 mg 08/07/24 09:00 08/07/24 14:56 Amlodipine Besylate 10 Mg Tablet PO Not Given DAILY KANE Cyanocobalamin 1,000 mcg 08/07/24 09:00 08/07/24 09:25 Cyanocobalamin 1,000 Mcg Tablet PO 09/06/24 08:59 1,000 mcg DAILY KANE Administration Fish Oil 1 gm 08/07/24 09:00 08/07/24 09:25 [place] 3 Polyunsat Fatty Acids 1 Gm Cap PO 09/06/24 08:59 1 gm DAILY KANE Administration Sodium Chloride 1,000 mls @ 125 mls/hr 08/07/24 01:20 08/08/24 05:45 Normal Saline Iv IV CONT 125 mls/hr .Q8H KANE Administration Ceftriaxone Sodium 1 gm in 50 mls @ 100 mls/hr 08/08/24 00:00 08/08/24 00:31 Rocephin 1 Gm/Ns 50 Ml IVPB Infused Q24H KANE Infusion Metronidazole 500 mg in 100 mls @ 100 mls/hr 08/07/24 09:00 08/08/24 00:35 Flagyl 500 Mg/Iso Soln 100 Ml IVPB 100 mls/hr Q8H KANE Administration Ondansetron HCl 4 mg 08/07/24 01:15 Ondansetron Inj 4 Mg/2 Ml Vial IV PUSH Q4H PRN Nausea Sertraline HCl 200 mg 08/07/24 09:00 08/07/24 09:25 Sertraline Hcl 50 Mg Tablet PO 09/06/24 08:59 200 mg DAILY KANE Administration Vitamin D 1,000 units 08/07/24 09:00 08/07/24 09:25 Cholecalciferol 1,000 Units Tablet PO 1,000 units DAILY KANE Administration Radiology Results: ITS Impressions Abdomen/Pelvis CT 08/06/24 23:25 IMPRESSION: 1. Panniculitis of the mid abdomen mesentery with slightly enlarged lymph nodes. 2. Possible colitis and less likely diverticulitis in the proximal sigmoid colon with thickening of the wall follow-up advised. 3. Cholelithiasis with distended gallbladder. No evidence of cholecystitis seen. 4. Stone in the left kidney upper pole Labs Labs: Laboratory Results - last 24 hr 08/07/24 09:42 WBC 16.0 H RBC 4.73 Hgb 13.0 L Hct 40.8 L MCV 86.3 MCH 27.5 MCHC 31.9 L RDW 15.3 H Plt Count 216 MPV 9.0 Immature Gran % (Auto) 0.3 Neut % (Auto) 76.0 H Lymph % (Auto) 15.5 L [place] % (Auto) 7.7 Eos % (Auto) 0.3 Baso % (Auto) 0.2 Lymph # (Auto) 2.48 [place] # (Auto) 1.2 H Eos # (Auto) 0.0 Baso # (Auto) 0.0 Abs Immat Gran (auto) 0.05 H Absolute Neuts (auto) 12.1 H Absolute Nucleated RBC 0.000 Nucleated RBC % 0.0 Sodium 140 Potassium 3.6 Chloride 108 H Carbon Dioxide 24 Anion Gap 8 BUN 15 Creatinine 1.20 Estim Creat Clear Calc 46 Estimated GFR 59 Glucose 142 H Calcium 8.6 Magnesium 2.1 Total Bilirubin 0.6 AST 24 ALT 22 Alkaline Phosphatase 71 Total Protein 7.0 Albumin 3.6
[2024-08-08 07:04] LABS: Basophils Absolute Auto 0.1 K/mm3 (0.0-0.1); Basophils Percent Auto 0.5 % (0.2-1.2); Eosinophils Absolute Auto 0.3 K/mm3 (0-0.3); Hematocrit 39.4 % (42.0-52.0); Hemoglobin 12.4 g/dL (14.0-18.0); Immature Granulocyte Absolute 0.04 K/mm3 (0.00-0.031); Immature Granulocyte Percent A 0.4 % (0-0.5); Lymphocytes Absolute Auto 2.45 K/mm3 (0.9-3.2); Lymphocytes Percent Auto 22.2 % (18.3-44.2); Mean Corpuscular HGB Conc 31.5 g/dl (32-36); Mean Corpuscular Hemoglobin 27.2 pg (26-34); Mean Corpuscular Volume 86.4 fl (80-100); Mean Platelet Volume 9.3 fl (7.4-10.4); Monocytes Absolute Auto 0.8 K/mm3 (0.1-0.6); Monocytes Percent Auto 7.6 % (2.6-8.5); Neutrophils Absolute Auto 7.3 K/mm3 (1.3-6.7); Neutrophils Percent Auto 66.3 % (45.5-73.1); Platelet Count Result 186 k/mm3 (150-375); Red Blood Count 4.56 M/mm3 (4.6-6.20); Red Cell Distribution Width 15.2 % (11.5-14.5)
[2024-08-08 07:17] LABS: Alanine Aminotransferase 20 U/L (6-50); Albumin Level 3.2 g/dL (3.5-5.1); Alkaline Phosphatase 62 U/L (38-126); Anion Gap 6 mmol/L (4-12); Aspartate Amino Transferase 23 U/L (17-59); Bilirubin,Total 0.7 mg/dL (0.2-1.3); Blood Urea Nitrogen 11 mg/dL (9-20); Calcium 8.2 mg/dL (8.4-10.2); Carbon Dioxide 25 mmol/L (22-30); Chloride 109 mmol/L (98-107); Estimated CRCL calculation 50 ml/min; Estimated Glomerular Filt Rate > 60; Glucose 85 mg/dL (65-110); Potassium 3.4 mmol/L (3.4-5.0); Sodium 140 mmol/L (137-145)
[2024-08-08] MEDS: SERTRALINE HCL 50 MG TABLET 200 MG PO (08:07)
[2024-08-08] MEDS: CHOLECALCIFEROL 1,000 UNITS TABLET 1000 UNITS PO (08:07)
[2024-08-08] MEDS: amLODIPine BESYLATE 10 MG TABLET PO (08:07)
[2024-08-08] MEDS: OMEGA 3 POLYUNSAT FATTY ACIDS 1 GM CAP PO (08:08)
[2024-08-08] MEDS: CYANOCOBALAMIN 1,000 MCG TABLET 1000 MCG PO (08:08)
--- NOTE | 2024-08-08 10:07 | P.PNIM_ITS ---
Progress Note: A&P Assessment and Plan (1) Panniculitis: Code(s): M79.3 - Panniculitis, unspecified Status: Acute Assessment and Plan: Abdominal pelvis CT showed: 1. Panniculitis of the mid abdomen mesentery with slightly enlarged lymph nodes. 2. Possible colitis and less likely diverticulitis in the proximal sigmoid colon with thickening of the wall follow-up advised. 3. Cholelithiasis with distended gallbladder. No evidence of cholecystitis seen. 4. Stone in the left kidney upper pole. Continue Ceftriaxone 1 gm daily and Metronidazole 500 mg IVPB q8 Monitor symptoms. GI consulted. If this trend continues he can be discharged home on 12 more days of antibiotics, suggest Amox/Clavulanic acid 1 g bid Regular diet with fiber to avoid constipation and recurrence of diverticulitis. (2) Diverticulitis: Code(s): K57.92 - Diverticulitis of intestine, part unspecified, without perforation or abscess without bleeding Status: Acute Assessment and Plan: Per chart review, last colonoscopy per patient was performed at the [place] 1 year ago which time he had a polyp removed and was noted to have diverticulosis, reports not available during today's visit. Abdominal pelvis CT showed: 1. Panniculitis of the mid abdomen mesentery with slightly enlarged lymph nodes. 2. Possible colitis and less likely diverticulitis in the proximal sigmoid colon with thickening of the wall follow-up advised. 3. Cholelithiasis with distended gallbladder. No evidence of cholecystitis seen. 4. Stone in the left kidney upper pole. Continue Ceftriaxone 1 gm daily and Metronidazole 500 mg IVPB q8 Monitor symptoms. GI consulted. If this trend continues he can be discharged home on 12 more days of antibiotics, suggest Amox/Clavulanic acid 1 g bid Regular diet with fiber to avoid constipation and recurrence of diverticulitis. (3) Cholelithiasis: Qualifiers: Cholelithiasis location: gallbladder Cholecystitis presence: without cholecystitis Biliary obstruction: without biliary obstruction Qualified Code(s): K80.20 - Calculus of gallbladder without cholecystitis without obstruction Code(s): K80.20 - Calculus of gallbladder without cholecystitis without obstruction Status: Acute Assessment and Plan: Incidental finding. Abdomen/pelvis CT: 1. Cholelithiasis with distended gallbladder. No evidence of cholecystitis seen. LFTs adn lipase WNL. Consider surgical evaluation for cholecystectomy as outpatient if recurrent symptoms Subjective Date/time seen: 08/08/24 10:07 Review of Systems Review of Systems: All systems reviewed & are unremarkable except as noted in HPI and below Exam Narrative: AF General: well nourished, well-developed male in no acute respiratory distress who is nontoxic appearing, lying semi recumbent in bed. HEENT: Normocephalic. Atraumatic. Pupils equal round reactive to light. Extraocular movement intact. Sclera clear and anicteric. Nares patent. No oral lesions. Moist mucous membranes. Tongue is midline. Palate salud symmetrically. No facial asymmetry. Neck: Neck was supple. No dominant adenopathy, thyromegaly or masses. 2+ carotid upstrokes without bruits. Chest: Lungs are clear to auscultation bilaterlly. No wheezes or crackles. CV: Heart was regular rate and rhythm. S1/S2. No murmurs, gallops, or rubs. Abd: Abdomen was soft. Nontender. Nondistended. Postive bowel sounds. No organomegaly or masses. Ext: No clubbing, cyanosis, or edema. 2+ DP pulses bilaterally. Neuro: Patient is alert and oriented x4. Strenth is 5/5 in both upper and lower extremities. Cranial nerves 2-12 are intact. Speech is clear. Psych: Normal nood and affect. Patient is pleasant and cooperative. Skin: Warm and dry. No rashes noted. Objective Data Vital Signs Vital Signs: Vital Signs - 24 hr 08/07/24 14:00 08/07/24 15:10 08/07/24 21:13 Temperature 97.9 F 97.8 F Pulse Rate 87 77 Respiratory Rate 20 16 Blood Pressure 107/59 L 135/63 Pulse Oximetry 93 93 Oxygen Delivery Room Air 08/08/24 05:55 Temperature 97.1 F L Pulse Rate 62 Respiratory Rate 12 Blood Pressure 120/45 L Pulse Oximetry 91 Oxygen Delivery Intake/Output Intake/Output: Intake & Output 08/05/24 08/06/24 08/07/24 08/08/24 23:59 23:59 23:59 23:59 Intake Total 1000 4622.1 1468 Balance 1000 4622.1 1468 Meds/Results Medications: Active Medications Generic Name Dose Route Start Last Admin Trade Name Freq PRN Reason Stop Dose Admin Acetaminophen 650 mg 08/07/24 14:46 Acetaminophen 325 Mg Tablet PO Q6H PRN Mild Pain (1-3) or Fever Amlodipine Besylate 10 mg 08/07/24 09:00 08/08/24 08:07 Amlodipine Besylate 10 Mg Tablet PO 10 mg DAILY KANE Administration Cyanocobalamin 1,000 mcg 08/07/24 09:00 08/08/24 08:08 Cyanocobalamin 1,000 Mcg Tablet PO 09/06/24 08:59 1,000 mcg DAILY KANE Administration Fish Oil 1 gm 08/07/24 09:00 08/08/24 08:08 [place] 3 Polyunsat Fatty Acids 1 Gm Cap PO 09/06/24 08:59 1 gm DAILY KANE Administration Sodium Chloride 1,000 mls @ 125 mls/hr 08/07/24 01:20 08/08/24 05:45 Normal Saline Iv IV CONT 125 mls/hr .Q8H KANE Administration Ceftriaxone Sodium 1 gm in 50 mls @ 100 mls/hr 08/08/24 00:00 08/08/24 00:31 Rocephin 1 Gm/Ns 50 Ml IVPB Infused Q24H KANE Infusion Metronidazole 500 mg in 100 mls @ 100 mls/hr 08/07/24 09:00 08/08/24 08:08 Flagyl 500 Mg/Iso Soln 100 Ml IVPB 100 mls/hr Q8H KANE Administration Ondansetron HCl 4 mg 08/07/24 01:15 Ondansetron Inj 4 Mg/2 Ml Vial IV PUSH Q4H PRN Nausea Sertraline HCl 200 mg 08/07/24 09:00 08/08/24 08:07 Sertraline Hcl 50 Mg Tablet PO 09/06/24 08:59 200 mg DAILY KANE Administration Vitamin D 1,000 units 08/07/24 09:00 08/08/24 08:07 Cholecalciferol 1,000 Units Tablet PO 1,000 units DAILY KANE Administration Radiology Results: ITS Impressions Abdomen/Pelvis CT 08/06/24 23:25 IMPRESSION: 1. Panniculitis of the mid abdomen mesentery with slightly enlarged lymph nodes. 2. Possible colitis and less likely diverticulitis in the proximal sigmoid colon with thickening of the wall follow-up advised. 3. Cholelithiasis with distended gallbladder. No evidence of cholecystitis seen. 4. Stone in the left kidney upper pole Labs Labs: Laboratory Results - last 24 hr 08/07/24 08/08/24 09:42 06:20 WBC 11.0 H RBC 4.56 L Hgb 12.4 L Hct 39.4 L MCV 86.4 MCH 27.2 MCHC 31.5 L RDW 15.2 H Plt Count 186 MPV 9.3 Immature Gran % (Auto) 0.4 Neut % (Auto) 66.3 Lymph % (Auto) 22.2 [place] % (Auto) 7.6 Eos % (Auto) 3.0 Baso % (Auto) 0.5 Lymph # (Auto) 2.45 [place] # (Auto) 0.8 H Eos # (Auto) 0.3 Baso # (Auto) 0.1 Abs Immat Gran (auto) 0.04 H Absolute Neuts (auto) 7.3 H Absolute Nucleated RBC 0.000 Nucleated RBC % 0.0 Sodium 140 140 Potassium 3.6 3.4 Chloride 108 H 109 H Carbon Dioxide 24 25 Anion Gap 8 6 BUN 15 11 Creatinine 1.20 1.10 Estim Creat Clear Calc 46 50 Estimated GFR 59 > 60 Glucose 142 H 85 Calcium 8.6 8.2 L Magnesium 2.1 Total Bilirubin 0.6 0.7 AST 24 23 ALT 22 20 Alkaline Phosphatase 71 62 Total Protein 7.0 6.0 L Albumin 3.6 3.2 L
--- NOTE | 2024-08-08 16:00 | P.DS_ITS ---
DS: Admitting Diagnosis Discharge Date 08/08/24 Admitting Diagnosis Panniculitis Diverticulitis cholelithiasis DS: Discharge Diagnosis Discharge Diagnosis (1) Panniculitis: Code(s): M79.3 - Panniculitis, unspecified Status: Acute (2) Diverticulitis: Code(s): K57.92 - Diverticulitis of intestine, part unspecified, without perforation or abscess without bleeding Status: Acute (3) Cholelithiasis: Qualifiers: Cholelithiasis location: gallbladder Cholecystitis presence: without cholecystitis Biliary obstruction: without biliary obstruction Qualified Code(s): K80.20 - Calculus of gallbladder without cholecystitis without obstruction Code(s): K80.20 - Calculus of gallbladder without cholecystitis without obstruction Status: Acute DS: Summary Hospital Course Reason for hospitalization: Panniculitis Diverticulitis cholelithiasis Hospital Course: 74 year old male with past medical history of hypertension and depression presents to the hospital for abdominal pain with several episodes of vomiting. Per chart review, last colonoscopy per patient was performed at the [facility] 1 year ago where he had a polyp removed and was noted to have diverticulosis. A CT abdomen/pelvis was obtained and showed panniculitis of the mid abdomen mesentery with slightly enlarged lymph nodes, Possible colitis and less likely diverticulitis in the proximal sigmoid colon with thickening of the wall, Cholelithiasis with distended gallbladder (No evidence of cholecystitis seen), and Stone in the left kidney upper pole. LFTs and lipase were WNL. Patient was started on IV rocephin and GI was consulted. GI agreed with IV antibiotics for the colitis and said that if the patient has recurrent symptoms concerning for cholecystitis he may need outpatient surgery. The following day patient was no long having nausea/vomiting or abdominal pain. He was able to tolerate a regular diet. Per GI patient was discharged on 12 more days of Augmentin to complete the course of antibiotics. prior to discharge patient denied chest pain, shortness a breath, nausea / vomiting, and abdominal pain. Patient discharged home in a stable condition. He is to complete his antibiotic course as prescribed and follow-up with his primary care provider in 1 week. Status at Discharge Functional status at discharge: uses cane/walker Time Spent with Patient Time attestation: Total time spent providing and/or coordinating discharge services: Time spent: Greater than 30 minutes Exam Narrative: AF HR 62 RR 12 SpO2 91 BP 120/45 General: male in no acute respiratory distress who is nontoxic appearing, lying semi recumbent in bed. Chest: Lungs are clear to auscultation bilaterally. No wheezes or crackles. CV: Heart was regular rate and rhythm. S1/S2. No murmurs, gallops, or rubs. Abd: Abdomen was soft. Nontender. Nondistended. Positive bowel sounds. No organomegaly or masses. Ext: No clubbing, cyanosis, or edema. 2+ DP pulses bilaterally. Neuro: Patient is alert and oriented x4. Cranial nerves 2-12 are intact. Speech is clear. DS: Data Data Completed and Pending Completed studies during hospitalization: abdomen pelvis CT Labs on day of discharge: Labs from last 24 hours 08/08/24 06:20 WBC 11.0 H RBC 4.56 L Hgb 12.4 L Hct 39.4 L MCV 86.4 MCH 27.2 MCHC 31.5 L RDW 15.2 H Plt Count 186 MPV 9.3 Immature Gran % (Auto) 0.4 Neut % (Auto) 66.3 Lymph % (Auto) 22.2 [place] % (Auto) 7.6 Eos % (Auto) 3.0 Baso % (Auto) 0.5 Lymph # (Auto) 2.45 [place] # (Auto) 0.8 H Eos # (Auto) 0.3 Baso # (Auto) 0.1 Abs Immat Gran (auto) 0.04 H Absolute Neuts (auto) 7.3 H Absolute Nucleated RBC 0.000 Nucleated RBC % 0.0 Sodium 140 Potassium 3.4 Chloride 109 H Carbon Dioxide 25 Anion Gap 6 BUN 11 Creatinine 1.10 Estim Creat Clear Calc 50 Estimated GFR > 60 Glucose 85 Calcium 8.2 L Total Bilirubin 0.7 AST 23 ALT 20 Alkaline Phosphatase 62 Total Protein 6.0 L Albumin 3.2 L Preliminary micro results at discharge 08/07/24 00:07 Blood Culture - Preliminary Blood 08/07/24 00:07 Blood Culture - Preliminary Blood Discharge Plan Discharge Attending physician on discharge: Aleyda Zimmerman Consulting providers: Bijan Car; Sherrie Johnson; Terrence Arguello; Awilda Moran Discharging Clinician: Consuelo Robles Anticipated Discharge Date/Time: 08/08/24 15:28 Patient Disposition: Home, Self-Care Activity: as tolerated Diet: as tolerated and regular Discharge Instructions: Discharge disposition: Patient was admitted to the hospital for nausea/vomiting and diarrhea. Found to have diverticulitis on imaging. GI was consulted Continue regular diet with fiber to avoid constipation Started on IV antibiotics and will be transitioned to oral augmentin at time of discharge. Attached is information on this medication. Complete this medication in its entirety even if feeling better. Encourage good oral intake Monitor stool output Monitor blood pressures Take caution while standing, rising, or moving Change positions slowly taking a break between each position change If you standing feel dizzy sat back down and take a break Encouraged to continue with yearly vaccinations Return to the emergency department if he developed sudden shortness of breath, chest pain, nausea, vomiting, upset stomach or intractable diarrhea Return to the emergency department if you develop fever greater than 101.5 Follow-up with the primary care physician within 1 weeks Thank you for choosing [facility] for your healthcare needs Patient Instructions: Antibiotic Form, Amoxicillin/Clavulanate Potassium (By mouth), Diverticulitis (DC), Pain Management (DC) Patient Language: Mauritanian Stand Alone Forms: General Discharge Information Follow-up/Referrals: Sherrie Johnson, BUSINESS SYSTEM CONSULTANT [Advanced Practice Nurse] - Call for Appointment PHYSICIAN NOT ON STAFF,NONSTAFF [Primary Care Provider] - 1 Week Discharge Medications: New amoxicillin-pot clavulanate [Augmentin XR] 1,000-62.5 mg tablet extended release 12 hr 1 tablet PO Q12H 12 Days Qty: 24 0RF Continued amlodipine 10 mg Tablet 10 mg PO DAILY cholecalciferol (vitamin D3) [Vitamin D3] 25 mcg (1,000 unit) Capsule 25 mcg PO DAILY omega-3 fatty acids Capsule 1 cap PO DAILY mecobalamin (vitamin B12) 1,000 mcg Tablet,Chewable 1,000 mcg PO DAILY sertraline 200 mg Capsule 200 mg PO DAILY Date of admission: 08/07/24 01:15 Primary Care Provider: PHYSICIAN NOT ON STAFF,NONSTAFF Admitting Provider: Cielo Mon Attending physician on admission: Consuelo Robles Condition: Stable Hospitalist MIPS Heart Failure (Exclusion) Patient has history of Heart Transplant or Left Ventricular Assistive Device?: No IF YES, STOP HERE Heart Failure (Qualifier) Patient has current or prior documentation of LVEF less than or equal to 40%, or mod/servere depressed LVSF?: No IF NO, STOP HERE
== END 2024-08-08 15:56 | disposition home or self-care (01) ==
LOC: ANHED 20:19 → ANH3MEDSUR 08-07 01:57
PROVIDERS: Nurse Practitioner Family; Admitting Provider Internal Medicine; Emergency Provider Physician Assistant; Visit Provider Student in an Organized Health Care Education/Training Program
DX: M79.3 Panniculitis, unspecified (principal); K80.20 Calculus of gallbladder without cholecystitis without obstruction; K57.92 Diverticulitis of intestine, part unspecified, without perforation or abscess without bleeding; E86.0 Dehydration; R11.14 Bilious vomiting; R93.3 Abnormal findings on diagnostic imaging of other parts of digestive tract; Z87.891 Personal history of nicotine dependence; Z80.0 Family history of malignant neoplasm of digestive organs; Z86.0100 Personal history of colon polyps, unspecified
CPT/HCPCS: 36415; 74177; 80053; 81001; 83690; 83735; 85025; 87040; 96361; 96365; 96366; 96367; 96375; 97161; 99285; A9270; G0378; J0696; J1200; J1836; J2270; J2470; J2765; J7030; Q9967